=== PATIENT | male | born 1945 | race Native Hawaiian/Other Pacific Islander ===

== ENCOUNTER 2016-04-20 07:49 | Outpatient (CLI) | payer OTHER ==
[~2016-04-20 07:49] MED LIST: AMOX500C85 PO; FLUT0.05; GLIP10TA55 PO; GLY OXIDE; GLYB5TAB65; GLYB5TAB65 OR; LISI20TA31; LISI20TA31 OR; METFORMIN ER1000 MG; METFORMIN ER1000 MG PO; SIMV20TA2; SIMV20TA2 OR; TESSALON200 MG OR
[2016-04-20 08:15] LABS: PLATELET COUNT 443 K/uL (142-355)
[2016-04-20 10:10] LABS: POTASSIUM 4.2 mmol/L (3.6-5.2); SODIUM 132 mmol/L (136-145)
== END 2016-04-20 19:45 | disposition home or self-care (01) ==
LOC: LABW 07:49
PROVIDERS: Internal Medicine
DX: E03.8 Other specified hypothyroidism (principal); E11.9 Type 2 diabetes mellitus without complications; Z12.5 Encounter for screening for malignant neoplasm of prostate
CPT/HCPCS: 36415; 80053; 80061; 81000; 82043; 82570; 83036; 84154; 84439; 84443; 85027

== ENCOUNTER 2016-10-26 10:15 | Outpatient (CLI) | payer OTHER | END 2016-10-26 10:27 | disposition short-term general hospital (02) | LOC: AMB 10:15 | DX: M25.511 Pain in right shoulder (principal); R07.89 Other chest pain; V49.88XA Car occupant (driver) (passenger) injured in other specified transport accidents, initial encounter; Y92.414 Local residential or business street as the place of occurrence of the external cause | CPT/HCPCS: A0425; A0429 ==

== ENCOUNTER 2016-10-26 10:38 | Emergency (ER) | payer OTHER ==
[~2016-10-26] VITALS: Ht 172.7 cm; Wt 77.1 kg
[2016-10-26 10:30] VITALS: TEMP 98.4
[2016-10-26 11:10] LABS: PLATELET COUNT 469 K/uL (142-355)
[2016-10-26 11:23] LABS: PARTIAL THROMBOPLASTIN TIME 23.3 SECONDS (24.5-33.6)
[2016-10-26 11:35] LABS: POTASSIUM 4.4 mmol/L (3.6-5.2)
[2016-10-26 11:56] VITALS: BP 149/89
== END 2016-10-26 12:07 | disposition home or self-care (01) ==
LOC: ED 10:38
DX: R07.89 Other chest pain (principal); R00.0 Tachycardia, unspecified; V43.52XA Car driver injured in collision with other type car in traffic accident, initial encounter; Y92.89 Other specified places as the place of occurrence of the external cause
CPT/HCPCS: 36415; 80053; 82550; 84484; 85027; 85610; 85730; 93005; 99195; 99283

== ENCOUNTER 2016-11-24 15:21 | Outpatient (CLI) | payer OTHER | END 2016-11-24 16:25 | disposition home or self-care (01) | LOC: LAB 15:21 | DX: D64.89 Other specified anemias (principal) | CPT/HCPCS: 82272 ==

== ENCOUNTER 2016-11-25 10:51 | Outpatient (CLI) | payer OTHER | END 2016-11-25 11:55 | disposition home or self-care (01) | LOC: LAB 10:51 | DX: D64.89 Other specified anemias (principal) | CPT/HCPCS: 82272 ==

== ENCOUNTER 2016-11-26 13:36 | Outpatient (CLI) | payer OTHER | END 2016-11-26 20:08 | disposition home or self-care (01) | LOC: LAB 13:36 | DX: D64.89 Other specified anemias (principal) | CPT/HCPCS: 82272 ==

== ENCOUNTER 2017-04-15 07:49 | Outpatient (CLI) | payer OTHER ==
[2017-04-15 08:25] LABS: PLATELET COUNT 281 K/uL (142-355)
[2017-04-15 08:41] LABS: POTASSIUM 4.7 mmol/L (3.6-5.2)
== END 2017-04-15 22:12 | disposition home or self-care (01) ==
LOC: LABW 07:49
PROVIDERS: Internal Medicine
DX: Z00.00 Encounter for general adult medical examination without abnormal findings (principal); E03.8 Other specified hypothyroidism; E11.9 Type 2 diabetes mellitus without complications; M75.52 Bursitis of left shoulder
CPT/HCPCS: 36415; 80053; 80061; 81000; 82043; 82570; 83036; 84153; 84439; 84443; 85027

== ENCOUNTER 2018-05-12 07:25 | Outpatient (CLI) | payer OTHER ==
[2018-05-12 08:09] LABS: PLATELET COUNT 273 K/uL (142-355)
[2018-05-12 08:26] LABS: POTASSIUM 3.9 mmol/L (3.6-5.2)
== END 2018-05-12 18:54 | disposition home or self-care (01) ==
LOC: LABW 07:25
PROVIDERS: Physician Assistant
DX: Z00.00 Encounter for general adult medical examination without abnormal findings (principal); E11.9 Type 2 diabetes mellitus without complications; E03.9 Hypothyroidism, unspecified; E78.00 Pure hypercholesterolemia, unspecified; D64.9 Anemia, unspecified; I10 Essential (primary) hypertension; N40.0 Benign prostatic hyperplasia without lower urinary tract symptoms; E55.9 Vitamin D deficiency, unspecified
CPT/HCPCS: 80053; 80061; 82306; 83036; 84153; 84439; 84443; 85027

== ENCOUNTER 2018-05-24 08:33 | Outpatient (CLI) | payer OTHER | END 2018-05-24 19:13 | disposition home or self-care (01) | LOC: US 08:33 | DX: Z13.820 Encounter for screening for osteoporosis (principal); Z13.6 Encounter for screening for cardiovascular disorders; M85.88 Other specified disorders of bone density and structure, other site ==

== ENCOUNTER 2018-11-16 08:57 | Inpatient (IN) | payer OTHER ==
[2018-11-16] VITALS (10 sets, daily range): BP systolic 131–157; BP diastolic 71–86; TEMP 98–98.6; Ht 175.3 cm; Wt 79.9 kg
[~2018-11-16] VITALS: Ht 175.3 cm; Wt 79.9 kg
[2018-11-16] MEDS ORDERED: TOUJEO SOL300 UNIT/M SC (09:35)
[2018-11-16] MEDS ORDERED: JARDIANCE10 MG PO (09:36)
[2018-11-16] MEDS ORDERED: LEVO0.1T6 PO (09:36)
[2018-11-16] MEDS ORDERED: AMLODIPINE BESYLATE PO ×2 (09:37→17:37)
[2018-11-16] MEDS ORDERED: METO-837 PO ×2 (09:37→17:39)
[2018-11-16] MEDS ORDERED: ASPIRIN 81 LOW81 MG PO (09:37)
[2018-11-16] MEDS ORDERED: OMEPRAZOLE20 M1 PO (09:38)
[2018-11-16 09:48] LABS: PLATELET COUNT 381 K/uL (142-355); POTASSIUM 3.8 mmol/L (3.6-5.2)
[2018-11-16] MEDS ORDERED: TRAMADOL HYDROC50 MG PO (11:02)
[2018-11-16] MEDS ORDERED: CIPRO500 MG PO (11:02)
[2018-11-17 04:00] VITALS: BP 153/74; TEMP 98.7
[2018-11-17 08:00] VITALS: BP 134/84; TEMP 97.7
[2018-11-17 12:00] VITALS: BP 116/68; TEMP 98.3
[2018-11-17 16:00] VITALS: BP 136/77; TEMP 98.1
[2018-11-17 20:00] VITALS: BP 144/80; TEMP 98.4
[2018-11-17 23:52] VITALS: BP 146/75; TEMP 98.3
[2018-11-18 03:58] VITALS: BP 139/75; TEMP 98.3
[2018-11-18 05:46] LABS: PLATELET COUNT 380 K/uL (142-355)
[2018-11-18 06:00] LABS: POTASSIUM 3.4 mmol/L (3.6-5.2)
[2018-11-18 08:00] VITALS: BP 169/82; TEMP 98
[2018-11-18 12:00] VITALS: BP 143/77; TEMP 98.4
[2018-11-18 16:00] VITALS: BP 188/87; TEMP 97.6
[2018-11-18 20:00] VITALS: BP 163/76; TEMP 98.4
[2018-11-19] VITALS (7 sets, daily range): BP systolic 132–159; BP diastolic 69–86; TEMP 98.1–98.7
[2018-11-19 04:58] LABS: PLATELET COUNT 367 K/uL (142-355)
[2018-11-19 05:25] LABS: POTASSIUM 3.7 mmol/L (3.6-5.2)
[2018-11-20 04:01] VITALS: BP 164/88; TEMP 99.1
[2018-11-20 05:34] LABS: PLATELET COUNT 401 K/uL (142-355)
[2018-11-20 08:00] VITALS: BP 144/78; TEMP 95
[2018-11-20 12:00] VITALS: BP 158/98; TEMP 98.3
[2018-11-20 16:00] VITALS: BP 155/80; TEMP 98.2
== END 2018-11-20 17:45 | disposition short-term general hospital (02) | DRG 603 ==
LOC: ED 08:57 → MED/SURG 10:00
PROVIDERS: Internal Medicine; ADMIT Emergency Medicine
DX: L03.116 Cellulitis of left lower limb (principal); E11.40 Type 2 diabetes mellitus with diabetic neuropathy, unspecified; I25.10 Atherosclerotic heart disease of native coronary artery without angina pectoris; I10 Essential (primary) hypertension; E03.8 Other specified hypothyroidism; K21.9 Gastro-esophageal reflux disease without esophagitis; D53.9 Nutritional anemia, unspecified; E11.649 Type 2 diabetes mellitus with hypoglycemia without coma; D72.828 Other elevated white blood cell count
CPT/HCPCS: 36415; 80053; 80202; 83605; 85027; 85651; 86140; 86141; 87040; 87070; 87205; 96365; 99220; 99284; G0378; J1650; J1815; J2543; J3370

== ENCOUNTER 2018-11-25 21:45 | Emergency (ER) | payer OTHER ==
[~2018-11-25] VITALS: Ht 175.3 cm; Wt 79.8 kg
[~2018-11-25 21:45] MED LIST changes: +AMLODIPINE BESYLATE PO; +ASPIRIN 81 LOW81 MG PO; +CIPRO500 MG PO; +JARDIANCE10 MG PO; +LEVO0.1T6 PO; +METO-837 PO; +OMEPRAZOLE20 M1 PO; +TOUJEO SOL300 UNIT/M SC; +TRAMADOL HYDROC50 MG PO
[2018-11-25 23:15] VITALS: BP 181/90; TEMP 98.1
== END 2018-11-25 23:15 | disposition home or self-care (01) ==
LOC: ED 21:45
DX: Z48.01 Encounter for change or removal of surgical wound dressing (principal)
CPT/HCPCS: 99282

== ENCOUNTER 2018-12-29 07:14 | Outpatient (CLI) | payer OTHER ==
[2018-12-29 08:29] LABS: POTASSIUM 4.4 mmol/L (3.6-5.2)
[2018-12-29 09:12] LABS: PLATELET COUNT 395 K/uL (142-355)
== END 2018-12-29 22:56 | disposition home or self-care (01) ==
LOC: LABW 07:14
PROVIDERS: Internal Medicine
DX: E11.9 Type 2 diabetes mellitus without complications (principal); E03.8 Other specified hypothyroidism
CPT/HCPCS: 36415; 80053; 80061; 81000; 82043; 82570; 83036; 84439; 84443; 85027

== ENCOUNTER 2019-12-10 07:56 | Outpatient (CLI) | payer OTHER ==
[2019-12-10 08:20] LABS: PLATELET COUNT 358 K/uL (142-355)
[2019-12-10 08:39] LABS: POTASSIUM 4.2 mmol/L (3.6-5.2)
== END 2019-12-10 19:06 | disposition home or self-care (01) ==
LOC: LABW 07:56
PROVIDERS: Internal Medicine
DX: E11.9 Type 2 diabetes mellitus without complications (principal)
CPT/HCPCS: 36415; 80053; 80061; 81000; 82043; 82570; 83036; 84439; 84443; 85027

== ENCOUNTER 2020-06-09 07:36 | Outpatient (CLI) | payer OTHER ==
[2020-06-09 08:33] LABS: PLATELET COUNT 454 K/uL (142-355)
[2020-06-09 08:39] LABS: POTASSIUM 4.5 mmol/L (3.6-5.2)
== END 2020-06-09 19:18 | disposition home or self-care (01) ==
LOC: LABW 07:36
PROVIDERS: ATTEND Internal Medicine
DX: E11.9 Type 2 diabetes mellitus without complications (principal); E03.8 Other specified hypothyroidism; I10 Essential (primary) hypertension
CPT/HCPCS: 36415; 80053; 80061; 81000; 82043; 82570; 83036; 84439; 84443; 84550; 85027

== ENCOUNTER 2020-07-28 07:39 | Outpatient (CLI) | payer OTHER | END 2020-07-28 19:07 | disposition home or self-care (01) | LOC: LABW 07:39 | PROVIDERS: ATTEND Internal Medicine | DX: Z12.5 Encounter for screening for malignant neoplasm of prostate (principal); D64.9 Anemia, unspecified; N40.0 Benign prostatic hyperplasia without lower urinary tract symptoms; E53.8 Deficiency of other specified B group vitamins | CPT/HCPCS: 36415; 82607; 82728; 82747; 83540; 83550; 84153 ==

== ENCOUNTER 2020-10-01 09:58 | Day surgery (SDC) | payer OTHER ==
[2020-09-24 13:11] LABS: PLATELET COUNT 398 K/uL (142-355)
[2020-09-24 13:26] LABS: POTASSIUM 5.2 mmol/L (3.6-5.2)
[~2020-10-01] VITALS: Ht 30.5 cm; Wt 0.5 kg
== END 2020-10-01 13:20 | disposition home or self-care (01) ==
LOC: OR 09:58
PROVIDERS: ATTEND Internal Medicine Gastroenterology
PROC: 0DBM8ZZ Excision of Descending Colon, Via Natural or Artificial Opening Endoscopic (ICD-10-PCS; principal; 2020-10-01)
DX: D12.4 Benign neoplasm of descending colon (principal); K64.8 Other hemorrhoids; D50.8 Other iron deficiency anemias; Z20.822 Contact with and (suspected) exposure to COVID-19
CPT/HCPCS: 80053; 85027; 87635; J2704; U0003

== ENCOUNTER → 2020-11-28 | Outpatient (CLI) | payer OTHER ==
[2020-11-28 11:09] LABS: PLATELET COUNT 346 K/uL (142-355)
[2020-11-28 11:12] LABS: POTASSIUM 4.5 mmol/L (3.6-5.2)
== END ==
LOC: LABW 10:20 → OR 11:00 → EDSTATUS 12-03 16:00
PROVIDERS: ATTEND Internal Medicine Gastroenterology
DX: D50.9 Iron deficiency anemia, unspecified (principal); Z01.812 Encounter for preprocedural laboratory examination
CPT/HCPCS: 80053; 85027; 87635; U0003

== ENCOUNTER 2021-02-09 07:10 | Outpatient (CLI) | payer OTHER ==
[2021-02-09 07:38] LABS: PLATELET COUNT 352 K/uL (142-355)
[2021-02-09 08:03] LABS: POTASSIUM 4.3 mmol/L (3.6-5.2)
== END 2021-02-09 18:59 | disposition home or self-care (01) ==
LOC: LABW 07:10
PROVIDERS: ATTEND Internal Medicine
DX: E11.9 Type 2 diabetes mellitus without complications (principal)
CPT/HCPCS: 36415; 80053; 80061; 81000; 83036; 84439; 84443; 85027

== ENCOUNTER 2021-10-13 07:17 | Outpatient (CLI) | payer OTHER ==
[2021-10-13 07:39] LABS: PLATELET COUNT 322 K/uL (142-355)
[2021-10-13 08:18] LABS: POTASSIUM 3.9 mmol/L (3.6-5.2)
== END 2021-10-13 20:34 | disposition home or self-care (01) ==
LOC: LABW 07:17
PROVIDERS: ATTEND Internal Medicine
DX: E11.9 Type 2 diabetes mellitus without complications (principal)
CPT/HCPCS: 36415; 80053; 80061; 81002; 83036; 84439; 84443; 85027